=== PATIENT | female | born 1995 | race Caucasian/White ===

== ENCOUNTER → 2020-12-20 | Outpatient (CLI) | payer OTHER ==
[2014-11-01 14:32] VITALS: BP 102/61
[~2020-12-20] MED LIST: HYDR-3164 PO; NAPR-683 PO; PNV1TABL25 PO
--- NOTE | 2020-12-21 13:40 | NUR ---
IP: Informed pt of positive covid test and she stated she was just getting over it. Lab faxed results to Dr. Byrnes's office. Instructed pt to contact on Wednesday.
== END ==
LOC: LAB 12:46
PROVIDERS: ATTEND Surgery
DX: U07.1 COVID-19 (principal); K80.10 Calculus of gallbladder with chronic cholecystitis without obstruction
CPT/HCPCS: U0003; U0005

== ENCOUNTER 2020-12-29 07:54 | Emergency (ER) | payer OTHER ==
[~2020-12-29] VITALS: Ht 152.4 cm; Wt 65.9 kg
[2020-12-29] MEDS ORDERED: KETOROLAC 15 MG/ML VIAL. IVP ONE (08:45)
[2020-12-29 09:07] LABS: BILIRUBIN,URINE NEGATIVE (NEG); CLARITY,URINE CLEAR; COLOR,URINE YELLOW; NITRITE,URINE NEGATIVE (NEG); PH,URINE 6.5 (<5.0-8.0); PROTEIN,URINE NEGATIVE (NEG-TRACE); UROBILINOGEN,URINE 0.2 mg/dL (0.2 mg/dL)
[2020-12-29 09:17] LABS: BASO # 0.1 x10^3/uL (0.0-0.2); BASO % 1 % (0-3); EOS # 0.2 x10^3/uL (0.0-0.7); EOS % 3 % (0-3); HEMATOCRIT 38.8 % (36.0-47.0); HEMOGLOBIN 13.4 g/dL (12.0-15.5); LYMPH # 1.6 x10^3/uL (1.0-4.8); LYMPH % 21 % (24-48); MEAN CORPUSCULAR HEMOGLOBIN 32 pg (25-35); MEAN CORPUSCULAR HGB CONC 35 g/dL (31-37); MEAN CORPUSCULAR VOLUME 92 fL (79-100); MONO # 0.4 x10^3/uL (0.0-1.1); MONO % 5 % (0-9); NEUT # 5.6 x10^3/uL (1.8-7.7); NEUT % 71 % (31-73); PLATELET COUNT 250 x10^3/uL (140-400); RED BLOOD COUNT 4.24 x10^6/uL (3.50-5.40); RED CELL DISTRIBUTION WIDTH 13.3 % (11.5-14.5); WHITE BLOOD COUNT 7.9 x10^3/uL (4.0-11.0)
[2020-12-29 09:20] LABS: BACTERIA,URINE FEW /HPF (0-FEW); RBC,URINE 0 /HPF (0-2)
--- NOTE | 2020-12-29 09:20 | ED.ADGEN ---
Past Medical History Past Surgical History: Smoking Status: Current Every Day Smoker Alcohol Use: Occasionally General Adult EDM: Chief Complaint: ABDOMINAL PAIN HPI: HPI: Patient is a 25 year old female presenting with epigastric pain radiating to the right. Patient states that this started but 3 oh. Has had similar pain in the past and was diagnosed with gallstones blocking her gallbladder. Has a appointment to have her gallbladder removed in 25 days. Patient denies any vomiting or diarrhea. No change with urination, no other abdominal surgeries. Patient states that she ate a chicken salad sandwich after the pain started but there is no change or improvement in pain. Review of Systems: Review of Systems: All other systems within normal limits except for as noted in the HPI Current Medications: Current Medications Medications (Trade) Dose Ordered Sig/Gibran Start Time Stop Time Status Last Admin Dose Admin Ketorolac Tromethamine (Toradol 15mg Vial) 15 mg 1X ONCE 12/29/20 08:45 12/29/20 08:46 DC 12/29/20 08:45 15 MG Allergies: Allergies: Allergies Coded Allergies Type Severity Reaction Last Updated Verified No Known Drug Allergies 10/29/14 No Physical Exam: PE: Constitutional: Well developed, well nourished, no acute distress, non-toxic appearance. [] HENT: Normocephalic, atraumatic, bilateral external ears normal, oropharynx moist, no oral exudates, nose normal. [] Eyes: PERRLA, EOMI, conjunctiva normal, no discharge. [] Neck: Normal range of motion, no tenderness, supple, no stridor. [] Cardiovascular:Heart rate regular rhythm, no murmur [] Lungs & Thorax: Bilateral breath sounds clear to auscultation [] Abdomen: Bowel sounds normal, soft, no tenderness, no masses, no pulsatile masses. [] Skin: Warm, dry, no erythema, no rash. [] Back: No tenderness, no CVA tenderness. [] Extremities: No tenderness, no cyanosis, no clubbing, ROM intact, no edema. [] Neurologic: Alert and oriented X 3, normal motor function, normal sensory function, no focal deficits noted. [] Psychologic: Affect normal, judgement normal, mood normal. [] Current Patient Data: Labs: Laboratory Tests Test 12/29/20 08:06 12/29/20 08:09 12/29/20 09:05 Urine Collection Type Unknown Urine Color Yellow Urine Clarity Clear Urine pH 6.5 (<5.0-8.0) Urine Specific [place] 1.025 (1.000-1.030) Urine Protein Negative mg/dL (NEG-TRACE) Urine Glucose (UA) Negative mg/dL (NEG) Urine Ketones (Stick) Negative mg/dL (NEG) Urine Blood Negative (NEG) Urine Nitrite Negative (NEG) Urine Bilirubin Negative (NEG) Urine Urobilinogen Dipstick 0.2 mg/dL (0.2 mg/dL) Urine Leukocyte Esterase Small (NEG) Urine RBC 0 /HPF (0-2) Urine WBC 5-10 /HPF (0-4) Urine Squamous Epithelial Cells Mod /LPF Urine Bacteria Few /HPF (0-FEW) Urine Mucus Mod /LPF POC Urine HCG, Qualitative Hcg negative (Negative) White Blood Count 7.9 x10^3/uL (4.0-11.0) Red Blood Count 4.24 x10^6/uL (3.50-5.40) Hemoglobin 13.4 g/dL (12.0-15.5) Hematocrit 38.8 % (36.0-47.0) Mean Corpuscular Volume 92 fL (79-100) Mean Corpuscular Hemoglobin 32 pg (25-35) Mean Corpuscular Hemoglobin Concent 35 g/dL (31-37) Red Cell Distribution Width 13.3 % (11.5-14.5) Platelet Count 250 x10^3/uL (140-400) Neutrophils (%) (Auto) 71 % (31-73) Lymphocytes (%) (Auto) 21 % (24-48) L Monocytes (%) (Auto) 5 % (0-9) Eosinophils (%) (Auto) 3 % (0-3) Basophils (%) (Auto) 1 % (0-3) Neutrophils # (Auto) 5.6 x10^3/uL (1.8-7.7) Lymphocytes # (Auto) 1.6 x10^3/uL (1.0-4.8) Monocytes # (Auto) 0.4 x10^3/uL (0.0-1.1) Eosinophils # (Auto) 0.2 x10^3/uL (0.0-0.7) Basophils # (Auto) 0.1 x10^3/uL (0.0-0.2) Sodium Level 139 mmol/L (136-145) Potassium Level 3.6 mmol/L (3.5-5.1) Chloride Level 104 mmol/L (98-107) Carbon Dioxide Level 29 mmol/L (21-32) Anion Gap 6 (6-14) Blood Urea Nitrogen 6 mg/dL (7-20) L Creatinine 0.8 mg/dL (0.6-1.0) Estimated GFR (Cockcroft-Gault) 86.0 BUN/Creatinine Ratio 8 (6-20) Glucose Level 96 mg/dL (70-99) Calcium Level 8.6 mg/dL (8.5-10.1) Total Bilirubin 0.7 mg/dL (0.2-1.0) Aspartate Amino Transferase (AST) 5 U/L (15-37) L Alanine Aminotransferase (ALT) 23 U/L (14-59) Alkaline Phosphatase 73 U/L (46-116) Total Protein 6.8 g/dL (6.4-8.2) Albumin 3.8 g/dL (3.4-5.0) Albumin/Globulin Ratio 1.3 (1.0-1.7) Lipase 91 U/L (73-393) Laboratory Tests 12/29/20 09:05 Laboratory Tests 12/29/20 09:05 Vital Signs: Vital Signs Date Time Temp Pulse Resp B/P (MAP) Pulse Ox O2 Delivery O2 Flow Rate FiO2 12/29/20 08:36 63 24 154/92 (112) 99 12/29/20 07:57 98.3 Room Air 98.3 EKG: EKG: [] Heart Score: C/O Chest Pain: No Risk Factors: Risk Factors: DM, Current or recent (<one month) smoker, HTN, HLP, family history of CAD, obesity. Risk Scores: Score 0 - 3: 2.5% MACE over next 6 weeks - Discharge Home Score 4 - 6: 20.3% MACE over next 6 weeks - Admit for Clinical Observation Score 7 - 10: 72.7% MACE over next 6 weeks - Early Invasive Strategies Radiology/Procedures: Radiology/Procedures: [] Course & Med Decision Making: Course & Med Decision Making Labs unremarkable and patient symptoms resolved. Ezio Disclaimer: Ezio Disclaimer: This electronic medical record was generated, in whole or in part, using a voice recognition dictation system. Departure Departure Impression: Primary Impression: Biliary colic Disposition: HOME / SELF CARE / HOMELESS Condition: STABLE Referrals: THERESA FUNES (PCP) Patient Instructions: Cholelithiasis Scripts Dicyclomine Hcl (DICYCLOMINE HCL) 10 Mg Capsule 1 CAP PO PRN Q6HRS PRN for ABDOMINAL PAIN for 10 Days, #20 CAP 3 Refills Prov: DANA MULLEN MD 12/29/20 Hydrocodone Bit/Acetaminophen (HYDROCODONE-APAP 5-325 ) 1 Tab Tablet 1 TAB PO PRN Q6HRS PRN for PAIN for 5 Days, #12 TAB 0 Refills Prov: DANA MULLEN MD 12/29/20 DANA MULLEN MD Dec 29, 2020 09:20
[2020-12-29 09:26] LABS: CALCIUM 8.6 mg/dL (8.5-10.1); CREATININE 0.8 mg/dL (0.6-1.0); POTASSIUM 3.6 mmol/L (3.5-5.1)
[2020-12-29 09:32] LABS: ALBUMIN 3.8 g/dL (3.4-5.0); ALBUMIN/GLOBULIN RATIO 1.3 (1.0-1.7); TOTAL BILIRUBIN 0.7 mg/dL (0.2-1.0); TOTAL PROTEIN 6.8 g/dL (6.4-8.2)
[2020-12-29 10:06] VITALS: BP 117/74
[2020-12-29] MEDS ORDERED: HYDR-2761 PO (10:38)
[2020-12-29] MEDS ORDERED: DICY10CA3 PO (10:38)
== END 2020-12-29 11:04 | disposition home or self-care (01) ==
LOC: ER 07:54
DX: K80.50 Calculus of bile duct without cholangitis or cholecystitis without obstruction (principal); F17.200 Nicotine dependence, unspecified, uncomplicated
CPT/HCPCS: 36415; 80053; 81001; 81025; 83690; 85025; 87086; 96374; 99285; J1885

== ENCOUNTER 2021-01-23 07:19 | Day surgery (SDC) | payer OTHER ==
[~2021-01-23] VITALS: Ht 152.4 cm; Wt 71.5 kg
[~2021-01-23 07:19] MED LIST changes: +ACETAMINOPHEN 500 MG TABLET PO PRN; +DICY10CA3 PO; +HYDR-2761 PO; +HYDROmorphone 2 MG/ML VIAL IVP PRN; +MORPHINE SULFATE 2 MG/ML INJ. IVP PRN; +PROCHLORPERAZINE 10 MG/2 ML VIAL. IVP PRN; +ceFAZolin SODIUM IV Push 1 GM VIAL. IVP PRN; +fentaNYL PF VIAL 100 MCG/2 ML VIAL IVP PRN
[2021-01-23 07:43] VITALS: BP 117/76
[2021-01-23] MEDS ORDERED: IOHEXOL 300 MG/ML 50 ML VIAL. ONE (07:45)
[2021-01-23] MEDS ORDERED: SURGICEL HEMOSTAT 4X8 EACH. ONE (07:45)
[2021-01-23] MEDS ORDERED: BUPIVACAINE-EPI 0.25%-1:200000 MPF 30 ML VIAL. ONE (07:46)
--- NOTE | 2021-01-23 07:48 | PDOC1 ---
History and Physical Date of Admission Date of Admission DATE: 01/23/21 TIME: 07:46 Identification/Chief Complaint Chief Complaint Right upper quadrant abdominal pain Source Source: Patient History of Present Illness History of Present Illness 25-year-old female with complaints of right upper quadrant abdominal pain was recently seen in the emergency department CT scan showing gallstones at that time Past Medical History Cardiovascular: No pertinent hx Pulmonary: No pertinent hx CENTRAL NERVOUS SYSTEM: Migraine GI: No pertinent hx Heme/Onc: No pertinent hx Psych: No pertinent hx Rheumatologic: No pertinent hx Infectious disease: No pertinent hx ENT: No pertinent hx Renal/: No pertinent hx Endocrine: No pertinent hx Dermatology: No pertinent hx Past Surgical History Past Surgical History: Family History Family History: No Significant Social History Smoke: No ALCOHOL: none Drugs: None Current Medications Current Medications Current Medications Fentanyl Citrate (Fentanyl 2ml Vial) 25 mcg PRN Q5MIN PRN IVP MILD PAIN 1-3; Start 01/23/21 at 06:00; Stop 01/24/21 at 05:59 Fentanyl Citrate (Fentanyl 2ml Vial) 50 mcg PRN Q5MIN PRN IVP MODERATE PAIN 4- 6; Start 01/23/21 at 06:00; Stop 01/24/21 at 05:59 Morphine Sulfate (Morphine Sulfate) 1 mg PRN Q10MIN PRN IVP SEVERE PAIN 7-10; Start 01/23/21 at 06:00; Stop 01/24/21 at 05:59 Ringer's Solution 1,000 ml @ 30 mls/hr Q24H IV ; Start 01/23/21 at 06:00; Stop 01/23/21 at 17:59 Hydromorphone HCl (Dilaudid) 0.5 mg PRN Q10MIN PRN IVP SEVERE PAIN 7-10, 2nd CHOICE; Start 01/23/21 at 06:00; Stop 01/24/21 at 05:59 Prochlorperazine Edisylate (Compazine) 5 mg PACU PRN PRN IVP NAUSEA, MRX1; Start 01/23/21 at 06:00; Stop 01/24/21 at 05:59 Acetaminophen (Tylenol) 1,000 mg 1X PREOP PRN PO PRIOR TO PROCEDURE; Start 01/23/21 at 06:00; Stop 01/23/21 at 18:00 Cefazolin Sodium (Ancef) 1 gm 1X PREOP PRN IVP PRIOR TO PROCEDURE; Start 01/23/21 at 06:00; Stop 01/23/21 at 18:00 Iohexol (Omnipaque 300 Mg/ml) 50 ml STK-MED ONCE .ROUTE ; Start 01/23/21 at 07:45; Stop 01/23/21 at 07:46; Status DC Cellulose (Surgicel Hemostat 4x8) 1 each STK-MED ONCE .ROUTE ; Start 01/23/21 at 07:45; Stop 01/23/21 at 07:46; Status DC Bupivacaine HCl/ Epinephrine Bitart (Sensorcaine-Epi 0.25%-1:247950 Mpf) 30 ml STK-MED ONCE .ROUTE ; Start 01/23/21 at 07:46; Stop 01/23/21 at 07:46; Status DC Active Scripts Active Hydrocodone-Apap 5-325 (Hydrocodone Bit/Acetaminophen) 1 Tab Tablet 1 Tab PO PRN Q6HRS PRN 5 Days Allergies Allergies: Coded Allergies: No Known Drug Allergies (Unverified , 10/29/14) ROS Gastrointestinal: Yes Abdominal Pain Physical Exam General: Alert, Oriented X3, Cooperative, No acute distress HEENT: Atraumatic, PERRLA, EOMI Lungs: Clear to auscultation, Normal air movement Heart: RRR, no murmurs Abdomen: Normal bowel sounds, Soft, Other (Tender to palpation right upper quadrant) Rectal Exam: not examined Extremities: No edema Skin: No significant lesion Neuro: Normal speech Psych/Mental Status: Mental status NL Labs Labs Laboratory Tests Test 01/23/21 07:35 Bedside Urine HCG, Qualitative Hcg negative (Negative) Laboratory Tests Test 01/23/21 07:35 Bedside Urine HCG, Qualitative Hcg negative (Negative) VTE Prophylaxis Ordered VTE Prophylaxis Devices: Yes VTE Pharmacological Prophylaxi: Contraindicated Assessment/Plan Assessment/Plan Chronic cholecystitis with cholelithiasis plan laparoscopic cholecystectomy Justifications for Admission Other Justification JOEY MORA MD Jan 23, 2021 07:48
[2021-01-23] MEDS: IV RINGERS,LACTATED 1000ML 1,000 ML IV SCH ×2 (07:52→09:52)
[2021-01-23] MEDS ORDERED: fentaNYL PF VIAL 100 MCG/2 ML VIAL ONE ×2 (08:11→09:44)
[2021-01-23] MEDS ORDERED: ROCURONIUM 50 MG/5 ML VIAL. ONE (08:11)
[2021-01-23] MEDS ORDERED: PROPOFOL 10 MG/ML (20ML) VIAL. IV ONE (08:12)
[2021-01-23] MEDS ORDERED: KETOROLAC 30 MG/ML VIAL. ONE (08:12)
[2021-01-23] MEDS ORDERED: LIDOCAINE 2% PF 5 ML VIAL. ONE (08:12)
[2021-01-23] MEDS ORDERED: ONDANSETRON PF 4 MG/2 ML VIAL. ONE (08:12)
[2021-01-23] MEDS ORDERED: SEVOFLURANE 61 TO 120 MINUTES. IH ONE (08:12)
[2021-01-23] MEDS ORDERED: MIDAZOLAM HCL/PF 2 MG/2 ML VIAL. ONE (08:16)
[2021-01-23] MEDS ORDERED: NEOSTIGMINE METHYLSULFATE 5 MG/5 ML SYRINGE. ONE (09:02)
[2021-01-23] MEDS ORDERED: GLYCOPYRROLATE 1 MG/5 ML VIAL. ONE (09:03)
--- NOTE | 2021-01-23 09:20 | PDOC4 ---
Operative Note Operative Note Date: January 23, 2021 at 09 17 Preoperative diagnosis: Chronic cholecystitis cholelithiasis Postoperative diagnosis: Same Procedure: Laparoscopic cholecystectomy fluorescein cholangiography Surgeon: Fitz Specimen: Gallbladder Dictation: Patient is 25-year-old female with right upper quadrant abdominal pain and CT scan showing gallstones. The procedure of laparoscopic cholecystectomy was explained to the patient detail risk-benefit were also discussed including bleeding infection injury to intra-abdominal contents possibly necessitating further or open operations alternatives to this procedure also discussed with the patient who seemed to understand and gave both verbal and written consent to have the procedure performed. Patient was taken to the operating room placed in the supine position general anesthesia was initiated once patient was sleeping intubated her abdomen was prepped and draped usual sterile fashion using ChloraPrep. An area just below the umbilicus was injected with quarter percent Marcaine with epinephrine incision was made with 11 blade scalpel and a varies needle was placed within the abdomen creating pneumoperitoneum once this was complete 11 mm port was placed and a 5 mm camera is placed within the abdomen which was inspected no other abnormalities were noted. A 5 mm port was placed in the epigastrium a 5 mm port was placed in the right midabdomen a 5 mm port was placed in the right lateral abdomen all under direct visualization. The dome of the gallbladder is grasped retracted cephalad the infundibulum of the gallbladder is grasped retracted laterally exposing the triangle adherent tissues the triangle were taken down at this point fluorescein cholangiography was performed which showed dye within the cystic duct common bile duct without any evidence of obstruction. The cystic duct was doubly cli pped and transected the cystic artery also similarly was doubly clipped and transected the gallbladder is taken off the liver with hook electrocautery placed in Endo Catch bag removed and umbilicus right upper quadrant was irrigated and suctioned dry hemostasis was deemed to be appropriate the pneumoperitoneum was reduced all ports were removed the fascial defect at the umbilicus was closed with a [id number] 0 Vicryl suture and the skin was reapproximated all port sites for subcuticular Monocryl Mastisol Steri-Strips and island dressings were applied. Patient was awakened and extubated in the operating room taken to recovery in stable condition all sponge instrument needle counts listed as correct estimated blood loss 10 mL JOEY MORA MD Jan 23, 2021 09:20
[2021-01-23] MEDS ORDERED: OXYC-325 PO (09:22)
--- NOTE | 2021-01-23 09:24 | DISCH ---
DISCHARGE INSTRUCTIONS Condition on Discharge Condition on Discharge: Stable Activity After Discharge Activity Instructions for Disc: Avoid exertion Other activity instructions: No lifting more than 20 pounds for 2 weeks Lifting Instructions after Dis: No heavy lifting Diet after Discharge Diet after Discharge: Low Fat Wound Incision Care Wound/Incision Care: Ice to area for comfort Other wound/incision instructi: May shower in 24-hour Contacting the after DC Call your doctor for: If your condition worsens Follow-Up Follow up with: Dr. Mora in 2 weeks JOEY MORA MD Jan 23, 2021 09:24
[2021-01-23] MEDS ORDERED: PROCHLORPERAZINE 10 MG/2 ML VIAL. ONE (09:44)
[2021-01-23] MEDS: fentaNYL PF VIAL 100 MCG/2 ML VIAL IVP PRN ×2 (09:51→10:02)
[2021-01-23] MEDS ORDERED: MORPHINE SULFATE 2 MG/ML INJ. ONE (10:19)
[2021-01-23] MEDS ORDERED: MORPHINE SULFATE 2 MG/ML INJ. IVP PRN ×2 (10:33→22:15)
[2021-01-23] MEDS ORDERED: oxyCODONE/APAP 5/325 1 TAB TABLET ONE (10:39)
[2021-01-23 11:11] VITALS: BP 115/70
[2021-01-23] MEDS ORDERED: oxyCODONE/APAP 5/325 1 TAB TABLET PO ONE (11:15)
== END 2021-01-23 11:31 | disposition home or self-care (01) ==
LOC: SURG 07:19
PROVIDERS: ATTEND Surgery
DX: K80.10 Calculus of gallbladder with chronic cholecystitis without obstruction (principal); K21.9 Gastro-esophageal reflux disease without esophagitis; F17.210 Nicotine dependence, cigarettes, uncomplicated; Z72.89 Other problems related to lifestyle; Z79.899 Other long term (current) drug therapy; Z98.890 Other specified postprocedural states
CPT/HCPCS: 47563; 81025; 88304; A4364; A4930; A6219; J0690; J0780; J1885; J2405; J2704; J2710; J3010; J3490; A4452; A4657; J2250; J2270; Q9967